=== PATIENT | male | born 1970 | race Caucasian/White ===

== ENCOUNTER 2018-07-13 16:53 | Emergency (ER) | payer SELFPAY ==
[~2018-07-13] VITALS: Ht 167.6 cm; Wt 68.0 kg
--- NOTE | 2018-07-13 17:00 | NUR ---
Attempted to triage, pt was not found in ER waiting room.
[2018-07-13] MEDS ORDERED: METF-440 PO (17:12)
[2018-07-13] MEDS ORDERED: TDAP DIPH,PERTUSS,TET VAC/PF 0.5 ML DISP.SYRIN IM ONE ×2 (17:44→17:45)
[2018-07-13] MEDS ORDERED: CLINDAMYCIN HCL 300 MG CAPSULE ONE (17:44)
[2018-07-13] MEDS ORDERED: CLINDAMYCIN HCL 150 MG CAPSULE PO ONE (17:45)
--- NOTE | 2018-07-13 17:51 | NUR ---
Patient discharged to home in stable conditon. Written and verbal after care instructions given. Patient verbalizes understanding of instructions.PT WALKS IN STEADY GAIT. PT ACCOMPANIED BY FAMILY MEMBERS.
== END 2018-07-13 17:52 | disposition home or self-care (01) ==
LOC: ER 16:53
DX: L03.113 Cellulitis of right upper limb (principal); E11.9 Type 2 diabetes mellitus without complications; Z79.899 Other long term (current) drug therapy
CPT/HCPCS: 90715; A4663